=== PATIENT | female | born 1985 | race Caucasian/White ===

== ENCOUNTER → 2021-02-22 | Outpatient (REF) ==
[~2021-02-22] MED LIST: HYDR-31; IBP600T1; METH4TAB PO; NAPR-243 PO; TRM50T PO; flexeril PO
--- NOTE | 2021-02-22 11:16 | Diagnostic Imaging Report ---
INDICATION: Back pain. Possible injury. COMPARISON: None. FINDINGS: Frontal and lateral views of the thoracic spine were obtained. Visualization of the upper thoracic spine is limited on the lateral projection. Alignment and vertebral heights are maintained. There is no fracture or destructive process. There are no large paraspinal masses. Mild multilevel degenerative changes are noted and consist of multilevel intervertebral disc height loss with small anterior and posterior endplate osteophyte formations. Limited views of the lungs are clear. IMPRESSION: 1. No acute fracture or dislocation of the thoracic spine. 2. Mild multilevel degenerative changes. Dictated by: Dictated on workstation # [id number]
== END ==
LOC: OCC 10:48
PROVIDERS: ATTEND Family Medicine
DX: M54.9 Dorsalgia, unspecified (principal)
CPT/HCPCS: 72070

== ENCOUNTER → 2022-06-13 | Outpatient (CLI) | payer BC ==
[~2022-06-13] MED LIST changes: +GADOTERATE 0.5 MMOL/ML (CLARISCAN) 15 ML VIAL IV ONE; +IOHEXOL 240 MGI/ML 50 ML (OMNIPAQUE) VIAL IV ONE; +LIDOCAINE 1% INJ 30 ML (XYLOCAINE) VIAL INJ ONE
--- NOTE | 2022-06-13 17:34 | Diagnostic Imaging Report ---
INDICATION: Hip pain, questioned impingement. EXAMINATION: Left hip MRI with contrast, 06/13/2022. FINDINGS: There is a focal osseous protuberance at the anterior femoral head neck junction. There is minimal fraying of the anterior superior labrum with no displaced tears. Cartilage throughout the joint appears maintained. No acute osseous abnormality is appreciated. There is diffuse T2 hyperintensity overlying the left greater trochanter at the attachment of the adjacent tendons. There is a suspected likely tear of the gluteus minimus and medius tendons poorly evaluated due to the large [id number] on the T2 fat-saturated sequence. Edema extends into the adjacent gluteal musculature. Mild similar findings noted in the opposite hip but less pronounced with findings on the right likely due to focal tendinosis at the greater trochanter. No acute osseous abnormality is noted within the pelvis or either hip. Hamstrings tendon origins intact. Iliopsoas tendons and musculature are intact, as visualized. Visualized intrapelvic structures demonstrate of free fluid, likely physiologic or due to a recently ruptured cyst. Bilateral cystic changes in the perineum noted, right greater than left, with the largest on the right measuring 2.4 cm in greatest dimension. These are nonspecific and could represent nabothian cysts. Bartholin gland cyst or other cystic lesion is not excluded. Physical examination and/or sonography may provide further characterization. IMPRESSION: 1. Fraying of the anterior superior labrum with a discrete tear not seen. There is an osseous protuberance which is small at the anterior femoral head neck junction of the left hip. 2. Partial tears of the gluteus minimus and medius tendon suspected with surrounding edema. Mild edema on the right likely due to focal tendinosis. 3. Free fluid in pelvis most likely physiologic or due to a recently ruptured cyst with nonspecific cystic changes in the perineal region, bilaterally, see above discussion and recommendations. Dictated by: Dictated on workstation # [id number]
--- NOTE | 2022-06-13 18:38 | Diagnostic Imaging Report ---
INDICATION: Hip pain. EXAMINATION: Fluoroscopy, left hip injection for MRI. PROCEDURE: Following aseptic preparation of the skin and administration of local anesthesia, a left hip injection was performed using fluoroscopic guidance. A 20-gauge needle was advanced into the left hip joint and approximately 10 mL of a mixture of Omnipaque 240, saline and 0.4cc Clariscan was injected. The patient tolerated the procedure well and was sent to the MR suite in good condition. IMPRESSION: There has been a successful injection of the left hip joint. MRI is pending for further study. Dictated by: Dictated on workstation # [id number]
== END ==
LOC: RAD 13:45
PROVIDERS: ATTEND Family Medicine Sports Medicine
DX: M25.852 Other specified joint disorders, left hip (principal); M70.62 Trochanteric bursitis, left hip
CPT/HCPCS: 27093; 73525; 73722

== ENCOUNTER 2022-06-24 12:46 | Outpatient (RCR) | payer BC ==
[~2022-06-24 12:46] MED LIST changes: -GADOTERATE 0.5 MMOL/ML (CLARISCAN) 15 ML VIAL IV ONE; -IOHEXOL 240 MGI/ML 50 ML (OMNIPAQUE) VIAL IV ONE; -LIDOCAINE 1% INJ 30 ML (XYLOCAINE) VIAL INJ ONE
== END 2022-06-25 | disposition home or self-care (01) ==
PROVIDERS: ATTEND Family Medicine Sports Medicine
DX: M25.852 Other specified joint disorders, left hip (principal); M70.62 Trochanteric bursitis, left hip; M76.02 Gluteal tendinitis, left hip

== ENCOUNTER 2022-07-16 15:11 | Outpatient (RCR) | payer BC | END 2022-07-26 | disposition home or self-care (01) | PROVIDERS: ATTEND Family Medicine Sports Medicine | DX: M25.852 Other specified joint disorders, left hip (principal); M70.62 Trochanteric bursitis, left hip; M76.02 Gluteal tendinitis, left hip; R26.89 Other abnormalities of gait and mobility ==

== ENCOUNTER 2022-10-22 09:55 | Outpatient (RCR) | payer BC | END 2022-10-25 | disposition home or self-care (01) | PROVIDERS: ATTEND Orthopaedic Surgery | DX: S73.102D Unspecified sprain of left hip, subsequent encounter (principal); Z98.890 Other specified postprocedural states ==

== ENCOUNTER 2022-11-06 09:55 | Outpatient (RCR) | payer BC | END 2022-11-25 | disposition home or self-care (01) | PROVIDERS: ATTEND Orthopaedic Surgery | DX: S73.102D Unspecified sprain of left hip, subsequent encounter (principal); X58.XXXD Exposure to other specified factors, subsequent encounter; Z98.890 Other specified postprocedural states ==